=== PATIENT | male | born 1950 | race Caucasian/White ===

== ENCOUNTER → 2020-04-30 08:47 | Outpatient (CLI) | payer MEDICARE, OTHER, SELFPAY ==
[2020-05-01 06:40] LABS: PSA Free % 21.5 % (.); PSA, Total 1.3 ng/mL (0.0-4.0)
== END ==
PROVIDERS: Referring Provider Physician Assistant; Visit Provider Physician Assistant
DX: R97.20 Elevated prostate specific antigen [PSA] (principal)
CPT/HCPCS: 36415; 84153; 84154

== ENCOUNTER → 2020-08-20 10:47 | Outpatient (CLI) | payer MEDICARE, OTHER, SELFPAY ==
--- NOTE | 2020-08-20 10:50 | DI.US.S_ITS ---
PROCEDURE: US ABD AORTA ANEURYSM SCREEN INDICATIONS: AAA SCREENING TECHNIQUE: Real time scanning was performed of the aorta and iliac arteries, with image documentation. COMPARISON: None. FINDINGS: Aorta: Proximal aortic diameter measures 2 cm. Mid-aorta measures 1.5 cm. Distal aortic diameter is 1.7 cm. Iliac arteries: Right common iliac artery measures 0.8 cm. Left common iliac artery measures 1.1 cm. IMPRESSION: Negative for aneurysm. Dictated by: Sebastian Salinas M.D. on 08/20/2020 at 12:06 Approved by: Sebastian Salinas M.D. on 08/20/2020 at 12:07
== END ==
PROVIDERS: PCP Student in an Organized Health Care Education/Training Program; Referring Provider Student in an Organized Health Care Education/Training Program; Visit Provider Student in an Organized Health Care Education/Training Program
DX: Z13.6 Encounter for screening for cardiovascular disorders (principal)
CPT/HCPCS: 76706

== ENCOUNTER → 2021-01-30 09:58 | Outpatient (CLI) | payer MEDICARE, OTHER, SELFPAY ==
[2021-01-31 09:11] LABS: PSA, Total 2.3 ng/mL (0.0-4.0)
== END ==
PROVIDERS: PCP Student in an Organized Health Care Education/Training Program; Referring Provider Physician Assistant Medical; Visit Provider Physician Assistant Medical
DX: R97.20 Elevated prostate specific antigen [PSA] (principal)
CPT/HCPCS: 36415; 84153; 84154